=== PATIENT | female | born 1985 | race Caucasian/White ===

== ENCOUNTER 2016-08-10 08:55 | Inpatient (IN) | payer BC ==
--- NOTE | ~2016-08-10 | PN ---
Unit #: [id number] #: [id number] Patient: MAURISIO TORRES [id number] [facility] [address] [place] [address] [id number] MR#: [id number] NAME: MAURISIO TORRES ROOM: P251 Age: 31 Sex: F Admission Date: 08/10/2016 : 1985 Attending Physician: Erasto Aguilar M.D. Admitting Physician: Erasto Aguilar M.D. Primary Care Physician: Primary Care Physician Namita DAVID PROGRESS NOTES DATE 08/14/2016 DISCUSSION The patient continues to exhibit some slowing of response. She is tolerating medications without complaint thus far and is pushing for early discharge. She may be nearing her psychiatric baseline. That, at this point, is unclear. She is, at least, at this point, not reporting any active suicidal or homicidal ideation and is reporting reduction in psychotic thinking. Dictated by... Erasto Aguilar M.D. CB/stacy TD: 08/15/2016 07:25 JOB #: [id number] [facility] PROGRESS NOTES Page 1 of 1 X Erasto Aguilar MD PROGRESS NOTE
--- NOTE | ~2016-08-10 | DS ---
Unit #: [id number] #: [id number] Patient: MAURISIO TORRES [id number] [facility] [address] [place] [address] [id number] MR#: [id number] NAME: MAURISIO TORRES ROOM: P25 Age: 31 Sex: F Admission Date: 08/10/2016 : 1985 Discharge Date: Attending Physician: Erasto Aguilar M.D. Primary Care Physician: Primary Care Physician No DISCHARGE SUMMARY REASON FOR ADMISSION The patient is a 31-year-old , white female, admitted with recurrence of auditory hallucinations and suicidal thinking. HOSPITAL COURSE The patient was admitted to the [address] [place] [address] unit and placed on suicide precautions. Efforts were made to obtain the patient's old record from [facility], but these were less unsuccessful. The patient reported a history of positive response to Zyprexa and was started on that medication with dosage titration to 15 mg at bedtime. Initially, trazodone 150 mg at h.s. was added. The patient tolerated these medications well and she reported reduction in auditory hallucinations and her thought blocking seemed significantly improved, though not entirely resolved by the time of her discharge. She requested discharge to take place on the morning of 08/16/2016 and at that time, denied any suicidal or homicidal ideation. Discharge was ordered. FINAL DIAGNOSES Chronic undifferentiated schizophrenia. DISPOSITION ON DISCHARGE The patient is discharged on the following medications; Zyprexa 15 mg at bedtime for psychosis, trazodone 50 mg at h.s. p.r.n. insomnia. DISCHARGE INSTRUCTIONS No dietary or physical restrictions were placed upon the patient at the time of discharge. FOLLOWUP Followup will take place through the auspices of community mental health resources in the [facility]. PROGNOSIS The patient's prognosis is fair. Dictated by... Erasto Aguilar M.D. CB/jenniffer TD: 08/16/2016 02:49 JOB #: [id number] Unit #: [id number] #: [id number] Patient: MAURISIO TORRES DISCHARGE SUMMARY Page 1 of 1 X Erasto Aguilar MD X DISCHARGE SUMMARY
--- NOTE | ~2016-08-10 | PN ---
Unit #: [id number] #: [id number] Patient: MAURISIO TORRES [id number] [facility] [address] [place] [address] [id number] MR#: [id number] NAME: MAURISIO TORRES ROOM: P251 Age: 31 Sex: F Admission Date: 08/10/2016 : 1985 Attending Physician: Erasto Aguilar M.D. Admitting Physician: Erasto Aguilar M.D. Primary Care Physician: Primary Care Physician Namita DAVID PROGRESS NOTES DATE 08/13/2016 DISCUSSION The patient continues to exhibit thought blocking and blunting of affect. She provides little in the way of interaction apart from monosyllabic answers during interview but does request Monday discharge for reasons on which she does not elaborate. She is denying suicidal ideation. I will go ahead an increase her Zyprexa to 15 mg. We await old records from [facility]. Dictated by... Erasto Aguilar M.D. CB/elizabeth TD: 08/13/2016 15:51 JOB #: [id number] [facility] PROGRESS NOTES Page 1 of 1 X Erasto Aguilar MD X PROGRESS NOTE
--- NOTE | ~2016-08-10 | PA ---
Unit #: [id number] #: [id number] Patient: MAURISIO TORRES [id number] [place] [address] [id number] MR#: [id number] NAME: MAURISIO TORRES ROOM: P251 Age: 31 Sex: F Admission Date: 08/10/2016 : 1985 Date of Assessment: 08/11/2016 Attending Physician: Erasto Aguilar M.D. Admitting Physician: Erasto Aguilar M.D. Primary Care Physician: Primary Care Physician No PSYCHIATRIC ASSESSMENT IDENTIFYING INFORMATION The patient is a 31-year-old white female admitted after presenting to [facility] in [place] complaining of suicidal ideation and auditory hallucinations. INFORMANT(S) Patient and chart. RELIABILITY Fair. CHIEF COMPLAINT None given. HISTORY OF PRESENT ILLNESS The patient is a 31-year-old white female who reportedly carries a diagnosis of schizophrenic illness. She reports a history of previous psychiatric treatment at [facility] and states that she was prescribed trazodone and Zyprexa at that facility. She states that she wishes to restart these medications. She had been fired from the job recently after she had seemed to be responding to internal stimuli. The patient reports that she is hearing voices and has been noted to be slow in processing of information both during yesterday's interview and during today's interview. The reports that she lives with her mother. She at this point does not work outside the home. She is the mother of 4 children none of whom she has custody. Patient denies abuse of any psychoactive substances. She was reporting command auditory hallucinations yesterday telling her to harm herself. PAST PSYCHIATRIC HISTORY As above. FAMILY HISTORY Noncontributory. SOCIAL HISTORY The patient lives with her mother. She is not presently employed. Her other social history described previously. She does smoke cigarettes. MEDICAL HISTORY The patient is status post cholecystectomy. MEDICATION HISTORY Unit #: [id number] #: [id number] Patient: MAURISIO TORRES None at this time. ALLERGIES None reported. MENTAL STATUS EXAM At this time, reveals the patient to be a well-developed, well-nourished white female appearing her stated age. She is in no apparent physical distress at the time of the examination. She is awake, alert, and oriented in all spheres. Her mood is calm. Her affect flat. Speech is impoverished with some word finding and thought blocking in evidence. Patient is generally cooperative during interview. Intelligence is judged to be in the low average range. She is currently reporting positive suicidal ideation. She denies homicidal ideation. She reports command auditory hallucinations and does exhibit some thought blocking. Judgement and insight appear to be significantly impaired. ASSETS AND LIABILITIES Patient's assets, supportive family. Liabilities, chronicity and severity of illness, poor compliance with treatment. ADMITTING DIAGNOSES Schizoaffective disorder. PSYCHIATRIC PLAN/TREATMENT GOALS The patient remains hospitalized for safety and stabilization. We will restart Zyprexa at a "generic dose" of 10 mg nightly and will also restart p.r.n. trazodone. I will ask for old records from [facility]. ESTIMATED LENGTH OF STAY Seven to ten days with follow up to take place through the auspices of community mental health resources in the [facility]. Dictated by... Erasto Aguilar M.D. SADE/elizabeth TD: 08/11/2016 16:58 JOB #: [id number] PSYCHIATRIC ASSESSMENT Page 1 of 1 X Erasto Aguilar MD X PSYCHIATRIC ASSESSMENT
--- NOTE | ~2016-08-10 | HP ---
Unit #: [id number] #: [id number] Patient: MAURISIO TORRES [id number] [place] [address] [id number] MR#: [id number] NAME: MAURISIO TORRES ROOM: P251 Age: 31 Sex: F Admission Date: 08/10/2016 : 1985 Attending Physician: Erasto Aguilar M.D. Admitting Physician: Erasto Aguilar M.D. Primary Care Physician: Primary Care Physician No HISTORY AND PHYSICAL HISTORY OF PRESENT ILLNESS Maurisio is a 31-year-old female admitted to [address] [place] [address] on 08/10/2016 for auditory hallucinations. PAST MEDICAL HISTORY None. PAST SURGICAL HISTORY Cholecystectomy. ALLERGIES None. SOCIAL HISTORY Smokes 1 pack of cigarettes daily. No alcohol or illegal drug use. She is currently single and living with her mother. FAMILY HISTORY Noncontributory. REVIEW OF SYSTEMS CONSTITUTIONAL: No fever or chills. HEENT: Denies any sore throat, ear pain or runny nose. CARDIOVASCULAR: Denies chest pain, irregular heart rhythm or palpitations. CHEST: Denies shortness of breath or cough. No hemoptysis. GASTROINTESTINAL: Denies nausea, vomiting, diarrhea or chronic constipation. ENDOCRINE: Denies history of increased thirst or urination. No recent significant weight loss or gain. GENITOURINARY: Denies dysuria, frequency, or hematuria. SKIN: Denies any rashes. HEMATOLOGIC: Denies history of increased bleeding or bruising. MUSCULOSKELETAL: Denies any hot, swollen joints. No generalized muscle pain. NEUROLOGIC: Denies problems with vision or speech. No frequent, severe headaches. No numbness, tingling or weakness in any extremities. Denies loss of bladder or bowel control. CURRENT MEDICATIONS None. PHYSICAL EXAMINATION GENERAL: Alert, oriented, in no acute distress. Unit #: [id number] #: [id number] Patient: MAURISIO TORRES VITAL SIGNS: Blood pressure 135/96, heart rate 81, temperature 98.3. HEIGHT: 5 feet 5. WEIGHT: 150 pounds. SKIN: Warm and dry without rash or lesion. HEENT: Normocephalic. TMs not viewed. Oral and nasal passages clear. Conjunctivae clear. PERRLA. EOMs intact. NECK: Supple without lymphadenopathy or thyromegaly. HEART: Regular rate and rhythm without murmur. LUNGS: Clear. ABDOMEN: Soft, nontender, without masses or hepatosplenomegaly. : Not done. EXTREMITIES: No evidence of cyanosis, clubbing or edema. Moves all without focal deficit. NEUROLOGICAL: Grossly within normal limits. Cranial Nerves: II: Visual vences are intact. III, IV AND : Extraocular movements are intact. Pupils are equal, round and reactive to light. V: Facial sensation is grossly normal. VII: Facial movements and expression are normal. VIII: Auditory acuity grossly intact. IX, X: Uvula is midline. Phonation is normal. XI: Patient shrugs shoulders and turns head normally. XII: Tongue protrudes in the midline. Sensory and Motor Function: Sensory and motor sensation is grossly normal. Motor: moves all extremities well. Coordination: Gait is normal. Deep Tendon Reflexes: Intact. IMPRESSION Psychiatric admission. RECOMMENDATIONS PSYCHIATRIC: Per psychiatrist. MEDICAL: No contraindications to participate in facility's activities. MEDICAL PROGNOSIS Good. MEDICAL CONDITION Stable. Dictated by... Arsenio Soni/elizabeth TD: 08/11/2016 17:24 JOB #: [id number] Unit #: [id number] #: [id number] Patient: MAURISIO TORRES HISTORY AND PHYSICAL Page 1 of 1 X RUTHY BAZAN APRN HISTORY AND PHYSICAL
--- NOTE | ~2016-08-10 | PN ---
Unit #: [id number] #: [id number] Patient: MAURISIO TORRES [id number] [facility] [address] [place] [address] [id number] MR#: [id number] NAME: MAURISIO TORRES ROOM: P251 Age: 31 Sex: F Admission Date: 08/10/2016 : 1985 Attending Physician: Erasto Aguilar M.D. Admitting Physician: Erasto Agiular M.D. Primary Care Physician: Primary Care Physician Namita DAVID PROGRESS NOTES DATE 08/12/2016 DISCUSSION The patient remains somewhat slowed and bizarre in her interactions with this physician but did comply with prescribed medications. She remains seclusive to her room with little participation within the therapeutic milieu. Her trial of Zyprexa continues and we await old records from [facility]. Dictated by... Erasto Aguilar M.D. CB/elizabeth TD: 08/12/2016 20:50 JOB #: [id number] [facility] PROGRESS NOTES Page 1 of 1 X Erasto Aguilar MD X PROGRESS NOTE
[2016-08-14 11:41] LABS: URINE APPEARANCE CLEAR; URINE BILIRUBIN NEG (NEG); URINE BLOOD NEG (NEG); URINE COLOR YELLOW; URINE GLUCOSE NEG (NEG); URINE KETONE NEG (NEG); URINE LEUKOCYTE ESTERASE NEG (NEG); URINE NITRATE NEG (NEG); URINE PH 6.5 (5-8); URINE PROTEIN NEG (NEG); URINE SPECIFIC GRAVITY 1.013 (1.003-1.035)
[2016-08-14 12:12] LABS: AMPHETAMINE NEG (NEG); BARBITURATES NEG (NEG); BENZODIAZEPINES NEG (NEG); COCAINE NEG (NEG); MARIJUANA NEG (NEG); OPIATES NEG (NEG); TRICYCLIC ANTIDEPRESSANTS NEG (NEG); U METHADONE NEG (NEG)
== END 2016-08-16 10:00 | disposition home or self-care (01) | DRG 885 ==
LOC: P2L 15:43
PROVIDERS: Specialist
DX: F20.5 Residual schizophrenia (principal); R45.851 Suicidal ideations; F17.210 Nicotine dependence, cigarettes, uncomplicated; Z90.49 Acquired absence of other specified parts of digestive tract
CPT/HCPCS: 80307; 81003